=== PATIENT | male | born 1955 | race Caucasian/White ===

== ENCOUNTER → 2018-01-30 | Outpatient (CLI) | payer OTHER, MEDICARE ==
[~2018-01-30] MED LIST: ACET-703 PO; ACET-822 PO; ALFU1TAB14 PO; BETH25TA2 PO; CARA1SUS3 PO; CENTCHW4 CHEW; CIAL20TA PO; CLAR10CA3 PO; CYMB60CA PO; HYDR-3535 PO; HYDR-3583 PO; IMIT100T PO; LACTCAP8 PO; LORA10TA PO; MONT10TA4 PO; MULT-135 PO; MULT-65 PO; PREV30CA36 PO; ROBISYP PO; VENTAER INH; VITA10002 PO; VITA50TA10 PO; ZITHTAB PO
--- NOTE | 2018-01-31 20:24 | EKG ---
Date Performed: 01/30/2018 Time Performed: 13:10:30 PTAGE: 62 years EKG: Sinus rhythm NORMAL ECG PREVIOUS TRACING : 10/26/2016 09.39 Since the previous tracing, no significant change noted DOCTOR: Jayne Muñoz Interpretating Date/Time 01/31/2018 20:22:50
== END ==
LOC: PHPRE 12:20
PROVIDERS: ATTEND Pain Medicine Interventional Pain Medicine
DX: Z01.810 Encounter for preprocedural cardiovascular examination (principal)
CPT/HCPCS: 93005